=== PATIENT | male | born 2000 | race American Indian/Alaskan Native ===

== ENCOUNTER 2021-09-27 16:32 | Emergency (ER) | payer SELFPAY ==
[2021-09-27 16:41] VITALS: BP 143/77
[2021-09-27] MEDS ORDERED: DEXAMETHASONE 4 MG TAB PO ONE (17:35)
[2021-09-27] MEDS ORDERED: IBUPROFEN 600 MG TAB PO ONE (17:35)
--- NOTE | 2021-09-27 17:35 | Emergency Department Report ---
ED ENT HPI - General Chief complaint: Sore Throat Stated complaint: THROAT SWELLING Time Seen by Provider: 09/27/21 17:07 Source: patient Mode of arrival: Ambulatory Limitations: No Limitations - History of Present Illness Initial comments: 21-year-old -[place] male presents to the ER today with complaints of sore throat. Patient states that symptoms started yesterday. He reports increased pain with swallowing, and he feels like his throat is swollen especially worse on the left side. He denies any drooling, or difficulty opening his mouth. He has not had no fever or chills. He denies any rhinorrhea, nasal congestion, cough or difficulty breathing. He denies any known ill contacts or recent travel. MD complaint: sore throat -: days(s) (1) - Related Data Previous Rx's Medication Instructions Recorded Last Taken Type Amoxicillin/Potassium Clav 1 each PO BID #14 09/27/21 Unknown Rx [Augmentin 875-125 Tablet] Ketorolac [Toradol] 10 mg PO Q6H PRN #20 09/27/21 Unknown Rx Allergies Allergy/AdvReac Type Severity Reaction Status Date / Time No Known Allergies Allergy Verified 09/27/21 17:26 ED Dental HPI - General Chief complaint: Sore Throat Stated complaint: THROAT SWELLING Time Seen by Provider: 09/27/21 17:07 Source: patient Mode of arrival: Ambulatory Limitations: No Limitations - Related Data Previous Rx's Medication Instructions Recorded Last Taken Type Amoxicillin/Potassium Clav 1 each PO BID #14 09/27/21 Unknown Rx [Augmentin 875-125 Tablet] Ketorolac [Toradol] 10 mg PO Q6H PRN #20 09/27/21 Unknown Rx Allergies Allergy/AdvReac Type Severity Reaction Status Date / Time No Known Allergies Allergy Verified 09/27/21 17:26 ED Review of Systems ROS: Stated complaint: THROAT SWELLING Other details as noted in HPI Comment: All other systems reviewed and negative Constitutional: denies: chills, diaphoresis, fever, malaise, weakness Eyes: denies: eye pain, eye discharge, vision change ENT: throat pain Respiratory: denies: cough, shortness of breath, SOB with exertion, SOB at rest, stridor, wheezing Cardiovascular: denies: chest pain, palpitations, dyspnea on exertion, edema, syncope, paroxysmal nocturnal dyspnea Gastrointestinal: denies: abdominal pain, nausea, vomiting, diarrhea, constipation, hematemesis, melena, hematochezia Genitourinary: denies: urgency, dysuria, frequency, hematuria, discharge, testicular pain, testicular mass Musculoskeletal: denies: back pain, joint swelling, arthralgia Skin: denies: rash, lesions, change in color, change in hair/nails, pruritus Neurological: denies: headache, weakness, numbness, paresthesias, confusion, abnormal gait, vertigo Psychiatric: denies: anxiety, depression, auditory hallucinations, visual hallucinations, homicidal thoughts, suicidal thoughts Hematological/Lymphatic: denies: easy bleeding, easy bruising, swollen glands ED Past Medical Hx - Medications Home Medications: Home Medications Medication Instructions Recorded Confirmed Last Taken Type Amoxicillin/Potassium Clav 1 each PO BID #14 09/27/21 Unknown Rx [Augmentin 875-125 Tablet] Ketorolac [Toradol] 10 mg PO Q6H PRN #20 09/27/21 Unknown Rx ED Physical Exam - General Limitations: No Limitations General appearance: alert, in no apparent distress - Head Head exam: Present: atraumatic, normocephalic, normal inspection - Eye Eye exam: Present: normal appearance, PERRL, EOMI Pupils: Present: normal accommodation - Expanded ENT Exam Expanded Mouth exam: Present: tongue normal. Absent: drooling, trismus, muffled voice, tongue elevation, laceration Throat exam: Positive: tonsillar erythema, tonsillomegaly (mild mainly left side), tonsillar exudate (mainly left side ). Negative: R peritonsillar mass, L peritonsillar mass - Neck Neck exam: Present: normal inspection, full ROM, lymphadenopathy (anterior cervical ). Absent: meningismus - Respiratory Respiratory exam: Present: normal lung sounds bilaterally. Absent: respiratory distress, wheezes, rales, rhonchi - Cardiovascular Cardiovascular Exam: Present: regular rate, normal rhythm, normal heart sounds - Neurological Exam Neurological exam: Present: alert, oriented X3, CN II-XII intact, normal gait - Psychiatric Psychiatric exam: Present: normal affect, normal mood - Skin Skin exam: Present: intact ED Course Vital Signs 09/27/21 09/27/21 16:40 17:25 Temperature 98.9 F Pulse Rate 89 Respiratory 18 Rate Blood Pressure 143/77 [Right] O2 Sat by Pulse 99 99 Oximetry ED Medical Decision Making - Medical Decision Making 1816: Patient will still be started on antibiotics despite negative strep test because there is a concern for spread given physical exam findings of tonsillar exudate and swelling. He is tolerating his secretions well. He has no trismus no drooling. His airway appears to be intact. His trachea appears midline. He is not in any significant distress. He has no stridor on exam. He is afebrile and he appears hydrated. He is not hypoxic. Discussed results with patient. Informed him that he will be started on antibiotics given clinical concern for strep. You will also be given Toradol to help with pain and encourage that he drinks lots of fluids specially cool fluids and he can also get some Chloraseptic spray from [id number] to help with the pain. Patient expressed understanding for instructions and agree with plan. Patient stable at time of discharge. Critical care attestation.: If time is entered above; I have spent that time in minutes in the direct care of this critically ill patient, excluding procedure time. ED Disposition Clinical Impression: Exudative tonsillitis Disposition: HOME / SELF CARE / HOMELESS Is pt being admited?: No Does the pt Need Aspirin: No Condition: Stable Instructions: Tonsillitis, [id number] Additional Instructions: Take the augmentin as prescribed and to completion. Take the toradol help with pain . Follow up with PCP this week or next week. Return to ED if your symptoms worsens in anyway. Prescriptions: Amoxicillin/Potassium Clav [Augmentin 875-125 Tablet] 1 each PO BID #14 Ketorolac [Toradol] 10 mg PO Q6H PRN #20 PRN Reason: Pain Referrals: JENNIFER PURVIS MD [Staff Physician] - 3-5 Days Forms: Work/School Release Form(ED) Time of Disposition: 18:09
== END 2021-09-27 18:44 | disposition home or self-care (01) ==
LOC: ED 16:32
DX: J03.90 Acute tonsillitis, unspecified (principal)
CPT/HCPCS: 87116; 87430; 99283; J8540